=== PATIENT | female | born 1930 | race Caucasian/White ===

== ENCOUNTER 2017-02-24 17:02 | Emergency (ER) | payer MEDICARE ==
[2017-02-24 17:24] VITALS: BP 161/82; PULSE 101; RESP 16; TEMP 97.8; O2SAT 100
[2017-02-24] MEDS ORDERED: Alum-Mag Hydrox-Simethicone Susp (30 mL) PO ONE (18:28)
--- NOTE | 2017-02-24 18:31 | ED PDOC ---
HPI: Abdomen Time Seen by Provider: 02/24/17 17:36 Chief Complaint (Nursing): Abdominal Pain Chief Complaint (Provider): Abdominal Pain History Per: Patient History/Exam Limitations: no limitations Onset/Duration Of Symptoms: Hrs Current Symptoms Are (Timing): Still Present Additional Complaint(s): 86 y/o female with a past medical history of hypertension and gastroesophageal reflux disease (GERD) who presents to the emergency department with a complaint of a non-radiating abdominal pain that developed about an hour prior to arrival after she ate rice and beans. States pain is towards the right upper and middle region. Reports drinking club soda to relieve symptoms. Denies vomiting, diarrhea, nausea, and fever. PMD: Dr. Eligio Robles MD Past Medical History Reviewed: Historical Data, Nursing Documentation, Vital Signs Vital Signs: Last Vital Signs Temp 97.8 F 02/24/17 17:20 Pulse 101 H 02/24/17 17:20 Resp 16 02/24/17 17:20 BP 161/82 H 02/24/17 17:20 Pulse Ox 100 02/25/17 03:11 - Medical History PMH: GERD, HTN Other PMH: Cholecystectomy - Surgical History Surgical History: Appendectomy, Cholecystectomy - Family History Family History: States: Unknown Family Hx - Social History Current smoker - smoking cessation education provided: No Alcohol: None Drugs: Denies - Home Medications Home Medications: Ambulatory Orders Medication Instructions Recorded Nitrofurantoin Macrocrystals 100 mg PO BID 5 Days cap 02/24/17 [Macrobid] - Allergies Allergies/Adverse Reactions: Allergies Allergy/AdvReac Type Severity Reaction Status Date / Time No Known Allergies Allergy Verified 02/24/17 17:24 Review of Systems ROS Statement: Except As Marked, All Systems Reviewed And Found Negative Constitutional: Negative for: Fever Gastrointestinal: Positive for: Abdominal Pain. Negative for: Nausea, Vomiting , Diarrhea Physical Exam - Reviewed Nursing Documentation Reviewed: Yes Vital Signs Reviewed: Yes - Physical Exam Appears: Positive for: Non-toxic, No Acute Distress Head Exam: Positive for: ATRAUMATIC, NORMAL INSPECTION, NORMOCEPHALIC Skin: Positive for: Normal Color, Warm, Dry ENT: Positive for: Normal ENT Inspection Cardiovascular/Chest: Positive for: Regular Rate, Rhythm. Negative for: Murmur Respiratory: Positive for: Normal Breath Sounds. Negative for: Accessory Muscle Use, Respiratory Distress Gastrointestinal/Abdominal: Positive for: Soft, Tenderness (Epigastric region). Negative for: Normal Exam Extremity: Positive for: Normal ROM. Negative for: Pedal Edema Neurologic/Psych: Positive for: Alert, Oriented (x3) - Laboratory Results Result Diagrams: 02/24/17 18:33 02/24/17 18:33 - ECG O2 Sat by Pulse Oximetry: 100 (RA) Pulse Ox Interpretation: Normal Medical Decision Making Medical Decision Making: Time: 1819 Initial Impression: Abdominal pain differential includes gastritis, gastroesophageal reflux disease (GERD), acute coronary syndrome (ACS), and pancreatitis Initial Plan: --EKG --CMP --Lipase --Troponin I --Urine DIP --CBC w/ diff --Maalox Plus 30 ml PO --Pepcid 20 mg IVP --Abd & Pelvis CT --Iohexol 50 ml PO --Reevaluation Time: 19:25 --EKG: Normal Sinus rhythm LVH. Normal QRS rate [address] changes. Scribe Attestation: Documented by Heidy Hancock, acting as a scribe for Kamryn Nolan MD. Provider Scribe Attestation: All medical record entries made by the Scribe were at my direction and personally dictated by me. I have reviewed the chart and agree that the record accurately reflects my personal performance of the history, physical exam, medical decision making, and the department course for this patient. I have also personally directed, reviewed, and agree with the discharge instructions and disposition. Disposition - Clinical Impression Clinical Impression: UTI (urinary tract infection), Enteritis - Patient ED Disposition Is Patient to be Admitted: Transfer of Care Counseled Patient/Family Regarding: Studies Performed, Diagnosis - Disposition Referrals: Eligio Robles MD [Family Provider] - Disposition: Transfer of Care Disposition Time: 19:00 Condition: STABLE Prescriptions: Nitrofurantoin Macrocrystals [Macrobid] 100 mg PO BID 5 Days cap Instructions: Urinary Tract Infection in Women (DC), Enteritis (ED) Forms: [facility] (Bengali)
[2017-02-24] MEDS ORDERED: Alum-Mag Hydrox-Simethicone Susp (30 mL) ONE (18:38)
[2017-02-24] MEDS ORDERED: Iohexol 240 (50 ml) PO ONE (18:38)
[2017-02-24 18:44] LABS: BASO % 0.6 % (0.0-2.0); EOS # 0.2 K/uL (0.0-0.7); EOS % 3.6 % (0.0-4.0); HEMATOCRIT 41.7 % (34.0-47.0); LYMPH # 1.6 K/uL (1.0-4.3); LYMPH % 27.7 % (20.0-40.0); MEAN CELL VOLUME 90.5 fl (81.0-99.0); MEAN CORPUSCULAR HEMOGLOBIN 29.5 pg (27.0-31.0); MEAN CORPUSCULAR HGB CONC 32.6 g/dL (33.0-37.0); MEAN PLATELET VOLUME 8.5 fl (7.2-11.7); MONO # 0.4 K/uL (0.0-0.8); MONO % 6.8 % (0.0-10.0); NEUT # 3.6 K/uL (1.8-7.0); NEUT % 61.3 % (50.0-75.0); NRBC % 0.1 % (0.0-0.0); RED CELL DISTRIBUTION WIDTH 14.7 % (11.5-14.5); WHITE BLOOD COUNT 5.8 K/uL (4.8-10.8)
[2017-02-24] MEDS ORDERED: Iohexol 240 (50 ml) ONE (18:45)
[2017-02-24 18:51] LABS: ALB/GLOB RATIO 1.3 (1.0-2.1); ALKALINE PHOSPHATASE 60 U/L (38-126); ALT/SGPT 36 U/L (9-52); AST/SGOT 34 U/L (14-36); BILIRUBIN,TOTAL 0.4 mg/dl (0.2-1.3); BLOOD UREA NITROGEN 25 mg/dl (7-17); CALCIUM 9.3 mg/dL (8.4-10.2); CARBON DIOXIDE 23 mmol/L (22-30); CHLORIDE 102 mmol/L (98-107); GFR AFRICAN-AMERICAN > 60; GLUCOSE,RANDOM 140 mg/dL (65-105); LIPASE 129 U/L (23-300); POTASSIUM 4.1 MMOL/L (3.6-5.0); SODIUM 139 mmol/l (132-148); TOTAL PROTEIN 8.1 G/DL (6.3-8.2)
--- NOTE | 2017-02-24 19:34 | ED PDOC ---
- Laboratory Results Result Diagrams: 02/24/17 18:33 02/24/17 18:33 - ECG O2 Sat by Pulse Oximetry: 100 (RA) Pulse Ox Interpretation: Normal Medical Decision Making Medical Decision Making: Time: 1899 --Patient was endorsed from Dr. Nolan to me. --Pending CT Scan Time: 20:52 --CT - ABDOMEN,PELVIS W/WO CONTRAST FINDINGS: Lower thorax: Borderline cardiomegaly. Minimal atelectasis/scarring. Small hiatal hernia. ABDOMEN: Liver: Too small to characterize lesion. Gallbladder and bile ducts: Cholecystectomy. No ductal dilation. Pancreas: No ductal dilation. No mass. Spleen: No splenomegaly. Adrenals: No mass. Kidneys and ureters: Too small to characterize lesion within LEFT kidney. Minimal pelvocaliectasis of kidneys, RIGHT greater than LEFT. Apparent minimal enhancement of urothelium of renal pelvis and ureter, RIGHT greater than LEFT. Stomach and bowel: Apparent mild mural/fold thickening of few jejunal loops. No associated inflammatory stranding. Scattered diverticula within colon. No associated inflammatory stranding. No obstruction. Appendix: No findings to suggest acute appendicitis. PELVIS: Bladder: Borderline bladder wall thickening, up to 5 mm. Incomplete distention, limiting evaluation. Reproductive: Unremarkable as visualized. ABDOMEN and PELVIS: Intraperitoneal space: No significant fluid collection. No free air. Bones/joints: Degenerative changes of spine. No acute fracture. Soft tissues: Unremarkable. Vasculature: Moderate atherosclerotic disease. No aneurysm. Lymph nodes: No pathologically enlarged lymph nodes. IMPRESSION: 1. Possible mild enteritis. Clinical correlation is needed. 2. Possible cystitis/ureteritis. Correlate with urinalysis. 3. Incidental/non-acute findings are described above. Time: 22:10 --Cipro 500 mg PO --Urine Culture --Urinalysis Time:2214 Upon provider reevaluation patient is feeling better, is medically stable, and requires no further treatment in the ED at this time. Patient will be discharged home with Rx for Cipro 500 mg PO. Counseling was provided and all questions were answered regarding diagnosis and need for follow up with Dr. Eligio Robles MD. There is agreement to discharge plan. Return if symptoms persist or worsen. Clinical Impression: Enteritis and urinary tract infection (UTI) Scribe Attestation: Documented by Heidy Hancock, acting as a scribe for Rah Haddad MD. Provider Scribe Attestation: All medical record entries made by the Scribe were at my direction and personally dictated by me. I have reviewed the chart and agree that the record accurately reflects my personal performance of the history, physical exam, medical decision making, and the department course for this patient. I have also personally directed, reviewed, and agree with the discharge instructions and disposition. Disposition Counseled Patient/Family Regarding: Studies Performed, Diagnosis, Need For Followup - Clinical Impression Clinical Impression: UTI (urinary tract infection), Enteritis - POA Present On Arrival: None - Disposition Referrals: Eligio Robles MD [Family Provider] - Disposition: Routine/Home Disposition Time: 22:15 Condition: STABLE Prescriptions: Nitrofurantoin Macrocrystals [Macrobid] 100 mg PO BID 5 Days cap Instructions: Urinary Tract Infection in Women (DC), Enteritis (ED) Forms: [facility] (German)
[2017-02-24] MEDS ORDERED: Sodium Chloride 0.9% 50 ML IV ONE (20:31)
[2017-02-24] MEDS ORDERED: Iohexol 300 100 ML IJ ONE (20:31)
--- NOTE | 2017-02-24 21:52 | CT ---
EXAM: CT Abdomen and Pelvis With Intravenous Contrast CLINICAL HISTORY: 86 years old, female; Pain; Abdominal pain; Epigastric; Prior surgery; Surgery date: 6+ months; Surgery type: Gb removed. Append. Removed TECHNIQUE: Axial computed tomography images of the abdomen and pelvis with intravenous contrast. All CT scans at this facility use one or more dose reduction techniques, viz.: automated exposure control; ma/kV adjustment per patient size (including targeted exams where dose is matched to indication; i.e. head); or iterative reconstruction technique. Coronal and sagittal reformatted images were created and reviewed. CONTRAST: 90 mL of administered intravenously. COMPARISON: CT - ABDOMEN,PELVIS W/WO CONTRAST 10/23/2015 9:32:21 AM FINDINGS: Lower thorax: Borderline cardiomegaly. Minimal atelectasis/scarring. Small hiatal hernia. ABDOMEN: Liver: Too small to characterize lesion. Gallbladder and bile ducts: Cholecystectomy. No ductal dilation. Pancreas: No ductal dilation. No mass. Spleen: No splenomegaly. Adrenals: No mass. Kidneys and ureters: Too small to characterize lesion within LEFT kidney. Minimal pelvocaliectasis of kidneys, RIGHT greater than LEFT. Apparent minimal enhancement of urothelium of renal pelvis and ureter, RIGHT greater than LEFT. Stomach and bowel: Apparent mild mural/fold thickening of few jejunal loops. No associated inflammatory stranding. Scattered diverticula within colon. No associated inflammatory stranding. No obstruction. Appendix: No findings to suggest acute appendicitis. PELVIS: Bladder: Borderline bladder wall thickening, up to 5 mm. Incomplete distention, limiting evaluation. Reproductive: Unremarkable as visualized. ABDOMEN and PELVIS: Intraperitoneal space: No significant fluid collection. No free air. Bones/joints: Degenerative changes of spine. No acute fracture. Soft tissues: Unremarkable. Vasculature: Moderate atherosclerotic disease. No aneurysm. Lymph nodes: No pathologically enlarged lymph nodes. IMPRESSION: 1. Possible mild enteritis. Clinical correlation is needed. 2. Possible cystitis/ureteritis. Correlate with urinalysis. 3. Incidental/non-acute findings are described above.
[2017-02-24 22:29] LABS: RBC URINE 7 /hpf (0-3); URINE BACTERIA OCC (<OCC); URINE BILIRUBIN NEGATIVE (NEGATIVE); URINE BLOOD SMALL (NEGATIVE); URINE COLOR YELLOW (YELLOW); URINE GLUCOSE (UA) NEG (Normal); URINE KETONE NEGATIVE (NEGATIVE); URINE LEUKOCYTE ESTERASE SMALL Leu/uL (Negative); URINE PROTEIN NEGATIVE (NEGATIVE); URINE UROBILINOGEN 0.2-1.0 mg/dL (0.2-1.0); WBC URINE 8 /hpf (0-5)
--- NOTE | 2017-02-25 10:34 | CARD ---
APPROVED REPORT EKG Measurement Heart [id number] <Conclusion> Normal sinus rhythm Left ventricular hypertrophy with repolarization abnormality Inferior infarct, age undetermined Abnormal ECG
== END 2017-02-24 22:31 | disposition home or self-care (01) ==
LOC: H.ER 17:02
DX: N39.0 Urinary tract infection, site not specified (principal); K52.9 Noninfective gastroenteritis and colitis, unspecified; I10 Essential (primary) hypertension
CPT/HCPCS: 74177; 80053; 81003; 83690; 84484; 85025; 87086; 87181; 93005; 96374; 99282; Q9966; Q9967

== ENCOUNTER 2017-09-16 15:50 | Observation (INO) | payer MEDICARE ==
[2017-09-16] MEDS ORDERED: Iohexol 240 (50 ml) PO ONE (16:59)
[2017-09-16] MEDS ORDERED: Iohexol 240 (50 ml) ONE (17:10)
[2017-09-16 17:14] LABS: BASO # 0.1 K/uL (0.0-0.2); BASO % 0.7 % (0.0-2.0); EOS # 0.1 K/uL (0.0-0.7); EOS % 1.1 % (0.0-4.0); HEMOGLOBIN 12.9 g/dL (12.0-16.0); LYMPH # 1.4 K/uL (1.0-4.3); LYMPH % 19.6 % (20.0-40.0); MEAN CELL VOLUME 90.1 fl (81.0-99.0); MEAN CORPUSCULAR HEMOGLOBIN 29.9 pg (27.0-31.0); MEAN CORPUSCULAR HGB CONC 33.2 g/dL (33.0-37.0); MEAN PLATELET VOLUME 8.3 fl (7.2-11.7); MONO # 0.6 K/uL (0.0-0.8); MONO % 8.3 % (0.0-10.0); NEUT # 5.1 K/uL (1.8-7.0); NEUT % 70.3 % (50.0-75.0); RBC 4.33 Mil/uL (3.80-5.20); RED CELL DISTRIBUTION WIDTH 14.7 % (11.5-14.5); WHITE BLOOD COUNT 7.2 K/uL (4.8-10.8)
[2017-09-16 17:27] LABS: ALB/GLOB RATIO 1.1 (1.0-2.1); ALBUMIN 4.1 g/dL (3.5-5.0); ALT/SGPT 42 U/L (9-52); AST/SGOT 30 U/L (14-36); BLOOD UREA NITROGEN 18 mg/dl (7-17); CALCIUM 9.1 mg/dL (8.4-10.2); GFR AFRICAN-AMERICAN > 60; GFR NON-AFRICAN AMERICAN > 60
[2017-09-16 17:39] LABS: URINE BILIRUBIN NEGATIVE (NEGATIVE); URINE BLOOD NEGATIVE (NEGATIVE); URINE CLARITY CLEAR (Clear); URINE COLOR COLORLESS (YELLOW); URINE GLUCOSE (UA) NEG (Normal); URINE LEUKOCYTE ESTERASE NEG Leu/uL (Negative); URINE PROTEIN NEGATIVE (NEGATIVE); URINE UROBILINOGEN 0.2-1.0 mg/dL (0.2-1.0)
--- NOTE | 2017-09-16 17:42 | ED PDOC ---
HPI: Abdomen Time Seen by Provider: 09/16/17 16:00 Chief Complaint (Nursing): Abdominal Pain Chief Complaint (Provider): abdominal pain History Per: Patient History/Exam Limitations: no limitations Onset/Duration Of Symptoms: Days (x4-5) Current Symptoms Are (Timing): Still Present Quality Of Discomfort: "Pain" Associated Symptoms: denies: Fever, Nausea, Vomiting, Diarrhea Additional Complaint(s): 87 year old female, with past medical history of HTN, presents to ED with complaints of abdominal pain onset for 4-5 days. Patient was referred to the ED by PCP. She reports to have eaten seafood with chili and thinks it might have triggered it. She denies nausea, vomiting, diarrhea or fever. No further medical complaints. PCP: Eligio Walker Past Medical History Reviewed: Historical Data, Nursing Documentation, Vital Signs Vital Signs: Last Vital Signs Temp 98.1 F 09/17/17 08:22 Pulse 68 09/17/17 09:00 Resp 20 09/17/17 08:22 BP 152/67 H 09/17/17 09:00 Pulse Ox 97 09/17/17 08:22 - Medical History PMH: GERD, HTN, Hypercholesterolemia - Surgical History Surgical History: Appendectomy, Cholecystectomy - Family History Family History: States: Unknown Family Hx - Social History Current smoker - smoking cessation education provided: No Alcohol: None Drugs: Denies - Home Medications Home Medications: Ambulatory Orders Medication Instructions Recorded Aspirin [Ecotrin] 81 mg PO DAILY 09/16/17 Carvedilol [Coreg] 6.25 mg PO DAILY 09/16/17 Famotidine [Pepcid] 40 mg PO DAILY 09/16/17 Gabapentin [Neurontin] 300 mg PO HS 09/16/17 Levothyroxine [Synthroid] 75 mcg PO DAILY 09/16/17 Sucralfate [Carafate] 1 gm PO DAILY 09/16/17 amLODIPine [Norvasc] 5 mg PO DAILY 09/16/17 - Allergies Allergies/Adverse Reactions: Allergies Allergy/AdvReac Type Severity Reaction Status Date / Time No Known Allergies Allergy Verified 09/16/17 15:55 Review of Systems ROS Statement: Except As Marked, All Systems Reviewed And Found Negative Constitutional: Negative for: Fever Gastrointestinal: Positive for: Abdominal Pain. Negative for: Nausea, Vomiting , Diarrhea Physical Exam - Reviewed Nursing Documentation Reviewed: Yes Vital Signs Reviewed: Yes - Physical Exam Appears: Positive for: Non-toxic, No Acute Distress Head Exam: Positive for: ATRAUMATIC, NORMAL INSPECTION, NORMOCEPHALIC Skin: Positive for: Normal Color, Warm, Dry Eye Exam: Positive for: Normal appearance ENT: Positive for: Normal ENT Inspection Neck: Positive for: Normal, Painless ROM Cardiovascular/Chest: Positive for: Regular Rate, Rhythm. Negative for: Murmur Respiratory: Positive for: Normal Breath Sounds. Negative for: Respiratory Distress Gastrointestinal/Abdominal: Positive for: Normal Exam, Soft. Negative for: Tenderness Back: Positive for: Normal Inspection. Negative for: L CVA Tenderness, R CVA Tenderness, Vertebral Tenderness Extremity: Positive for: Normal ROM (lower/upper). Negative for: Deformity, Swelling Neurologic/Psych: Positive for: Alert, Oriented. Negative for: Motor/Sensory Deficits - Laboratory Results Result Diagrams: 09/17/17 07:20 09/17/17 07:20 - ECG O2 Sat by Pulse Oximetry: 98 (RA) Pulse Ox Interpretation: Normal Medical Decision Making Medical Decision Making: Initial Impression: Abdominal pain rule out diverticulitis, colitis Initial Plan: --CT Abd Pelvis & IV contrast --CMP --ED Urine dipstick --CBC --Urinalysis --Omnipaque 50mL PO 20:11 CT Abd/Pelvis FINDINGS: LIMITATIONS: Moderate streak/motion artifact. LUNG BASES: No significant abnormality seen. MEDIASTINUM: Small hiatal hernia. ABDOMEN: LIVER: Fatty infiltration of the liver. GALLBLADDER AND BILE DUCTS: Cholecystectomy clips. PANCREAS: No CT evidence of acute pancreatitis. SPLEEN: No acute abnormality of the spleen identified. ADRENALS: No acute abnormality of the adrenal glands identified. KIDNEYS AND URETERS: Incidental fluid density probable cystic left renal lesion, measuring less than 1 cm. Consistent with the [employer]?s Incidental Findings Committee Report, unless the patient?s specific circumstances suggest otherwise, any cystic kidney lesion less than 1 cm not otherwise characterized in this report as possessing suspicious or indeterminate imaging features is/are highly likely to be benign and do not require follow-up imaging or biopsy. STOMACH AND BOWEL: Mild fat stranding and infiltration, consistent with inflammatory change, is seen in the fat adjacent to the distal sigmoid colon. Mild segmental wall thickening of the colon is also noted in this same area. There is a tiny amount of nearby pelvic free fluid. The inflammatory changes surround a colonic diverticulum, image 126 series 3. Findings are most compatible with acute diverticulitis. No evidence of significant focal fluid collection or abscess. No definite nearby extraluminal air seen to suggest perforation. Extensive colonic diverticulosis. Duodenal diverticulum. Otherwise, no significant abnormality of the bowel is identified. No evidence of bowel obstruction. PELVIS: APPENDIX: Normal appendix is not seen, and there is a reported history of previous appendectomy. BLADDER: No acute abnormality of the bladder identified. REPRODUCTIVE:No acute abnormality of the reproductive organs is seen. No acute abnormality of the uterus identified. No evidence of large adnexal masses. ABDOMEN and PELVIS: INTRAPERITONEAL SPACE: See above. No evidence of free fluid or free air. BONES/JOINTS: No acute fractures or other acute bony abnormality noted. SOFT TISSUES: No acute abnormality of the visualized soft tissues is seen. VASCULATURE: No evidence of abdominal aortic aneurysm. No evidence of periaortic hemorrhage. LYMPH NODES: No evidence of diffuse lymphadenopathy. IMPRESSION: - Findings compatible with acute diverticulitis of the colon. No evidence of abscess formation or perforation. - See above for remaining findings. 21:[address] Robles regarding patient's diagnosis of acute diverticulitis. iv abx ordered. pt aware and agreeable to plan. Per Dr Robles, he will call consults tomorrow. Scribe Attestation: Documented by Nathan Hall acting as a scribe for Ernesto Pichardo MD. Provider Scribe Attestation: All medical record entries made by the Scribe were at my direction and personally dictated by me. I have reviewed the chart and agree that the record accurately reflects my personal performance of the history, physical exam, medical decision making, and the department course for this patient. I have also personally directed, reviewed, and agree with the discharge instructions and disposition. Disposition - Clinical Impression Clinical Impression: Abdominal discomfort, Diverticulitis - Patient ED Disposition Is Patient to be Admitted: Yes - Disposition Disposition Time: 18:00 Condition: STABLE
[2017-09-16] MEDS ORDERED: Sodium Chloride 0.9% 100 ML ONE (19:07)
[2017-09-16] MEDS ORDERED: Iohexol 300 100 ML IJ ONE (19:07)
[2017-09-16] MEDS ORDERED: Labetalol 5 mg/ml Inj 20ML IVP STA (19:50)
--- NOTE | 2017-09-16 20:12 | CT ---
EXAM: CT Abdomen and Pelvis With Intravenous Contrast EXAM DATE/TIME: 09/16/2017 4:59 PM CLINICAL HISTORY: 87 years old, female; Pain; Abdominal pain; Generalized; Prior surgery; Surgery date: 6+ months; Surgery type: Appendectomy, cholecystectomy; Patient HX: Gerd TECHNIQUE: Axial computed tomography images of the abdomen and pelvis with intravenous contrast. All CT scans at this facility use one or more dose reduction techniques, viz.: automated exposure control; ma/kV adjustment per patient size (including targeted exams where dose is matched to indication; i.e. head); or iterative reconstruction technique. Coronal and sagittal reformatted images were created and reviewed. CONTRAST: 90 mL of [id number] administered intravenously. COMPARISON: Prior CT abdomen and pelvis of 2017-02-24 FINDINGS: LIMITATIONS: Moderate streak/motion artifact. LUNG BASES: No significant abnormality seen. MEDIASTINUM: Small hiatal hernia. ABDOMEN: LIVER: Fatty infiltration of the liver. GALLBLADDER AND BILE DUCTS: Cholecystectomy clips. PANCREAS: No CT evidence of acute pancreatitis. SPLEEN: No acute abnormality of the spleen identified. ADRENALS: No acute abnormality of the adrenal glands identified. KIDNEYS AND URETERS: Incidental fluid density probable cystic left renal lesion, measuring less than 1 cm. Consistent with the [employer]?s Incidental Findings Committee Report, unless the patient?s specific circumstances suggest otherwise, any cystic kidney lesion less than 1 cm not otherwise characterized in this report as possessing suspicious or indeterminate imaging features is/are highly likely to be benign and do not require follow-up imaging or biopsy. STOMACH AND BOWEL: Mild fat stranding and infiltration, consistent with inflammatory change, is seen in the fat adjacent to the distal sigmoid colon. Mild segmental wall thickening of the colon is also noted in this same area. There is a tiny amount of nearby pelvic free fluid. The inflammatory changes surround a colonic diverticulum, image 126 series 3. Findings are most compatible with acute diverticulitis. No evidence of significant focal fluid collection or abscess. No definite nearby extraluminal air seen to suggest perforation. Extensive colonic diverticulosis. Duodenal diverticulum. Otherwise, no significant abnormality of the bowel is identified. No evidence of bowel obstruction. PELVIS: APPENDIX: Normal appendix is not seen, and there is a reported history of previous appendectomy. BLADDER: No acute abnormality of the bladder identified. REPRODUCTIVE:No acute abnormality of the reproductive organs is seen. No acute abnormality of the uterus identified. No evidence of large adnexal masses. ABDOMEN and PELVIS: INTRAPERITONEAL SPACE: See above. No evidence of free fluid or free air. BONES/JOINTS: No acute fractures or other acute bony abnormality noted. SOFT TISSUES: No acute abnormality of the visualized soft tissues is seen. VASCULATURE: No evidence of abdominal aortic aneurysm. No evidence of periaortic hemorrhage. LYMPH NODES: No evidence of diffuse lymphadenopathy. IMPRESSION: - Findings compatible with acute diverticulitis of the colon. No evidence of abscess formation or perforation. - See above for remaining findings.
[2017-09-16] MEDS ORDERED: Ciprofloxacin 400mg/200ml D5W 400 MG/200 ML BAG IVPB STA (20:16)
[2017-09-16] MEDS ORDERED: metroNIDAZOLE 500mg/100ml NS 100 ML IVPB STA (20:17)
[2017-09-16] MEDS ORDERED: Ciprofloxacin 400mg/200ml D5W 400 MG/200 ML BAG IVPB ONE (21:28)
[2017-09-17] MEDS: Dextrose 5%/0.9% NS 1,000 ML IV SCH ×2 (02:55→16:23)
[2017-09-17 07:42] LABS: HEMOGLOBIN 12.4 g/dL (12.0-16.0); MEAN CELL VOLUME 90.2 fl (81.0-99.0); MEAN CORPUSCULAR HEMOGLOBIN 30.1 pg (27.0-31.0); MEAN CORPUSCULAR HGB CONC 33.3 g/dL (33.0-37.0); RBC 4.13 Mil/uL (3.80-5.20); RED CELL DISTRIBUTION WIDTH 14.5 % (11.5-14.5); WHITE BLOOD COUNT 5.1 K/uL (4.8-10.8)
[2017-09-17 08:13] LABS: AMYLASE 79 U/L (30-110); BLOOD UREA NITROGEN 14 mg/dl (7-17); GFR AFRICAN-AMERICAN > 60; GFR NON-AFRICAN AMERICAN > 60; LIPASE 46 U/L (23-300)
[2017-09-17] MEDS: Enoxaparin 40 mg Syringe SC SCH (09:00)
[2017-09-17] MEDS: Levothyroxine 75 MCG TAB PO SCH (09:00)
[2017-09-17] MEDS: metroNIDAZOLE 500mg/100ml NS 100 ML IVPB SCH ×3 (09:01→23:59)
[2017-09-17] MEDS: Ciprofloxacin 400mg/200ml D5W 400 MG/200 ML BAG IVPB SCH ×2 (09:02→21:09)
--- NOTE | 2017-09-17 11:13 | CP.PCM.HP ---
History of Present Illness - History of Present Illness History of Present Illness: Patient is a pleasant 88 y/o lady presented in ER with hx of progressive worsening abdominal pain for about 2 days, the location of the pain is most in the lower quadrants, the characteristic is crampy and colicky, intermittent no irradiation of the pain, she c/o nausea with positive flatus, no urinary symptoms, no change of the pain with position, no melena, no hematochesia. Patient had several episode in the past with dx of diverticulitis. Since admission she improving on present rx. Will advance the diet. Patient was placed under observation. Present on Admission - Present on Admission Any Indicators Present on Admission: No Review of Systems - Constitutional Constitutional: As Per HPI - EENT Eyes: As Per HPI - Cardiovascular Cardiovascular: As Per HPI - Respiratory Respiratory: As Per HPI - Gastrointestinal Gastrointestinal: Abdominal Pain, Cramping - Genitourinary Genitourinary: As Per HPI - Musculoskeletal Musculoskeletal: As Per HPI - Integumentary Integumentary: As Per HPI - Neurological Neurological: As Per HPI - Psychiatric Psychiatric: As Per HPI Past Patient History - Past Medical History & Family History Past Medical History?: Yes - Past Social History Smoking Status: Never Smoked - CARDIAC Hx Cardiac Disorders: Yes Hx Hypercholesterolemia: Yes Hx Hypertension: Yes - PULMONARY Hx Respiratory Disorders: No - NEUROLOGICAL Hx Neurological Disorder: No - HEENT Hx HEENT Problems: No - RENAL Hx Chronic Kidney Disease: No - ENDOCRINE/METABOLIC Hx Endocrine Disorders: No - HEMATOLOGICAL/ONCOLOGICAL Hx Blood Disorders: No - INTEGUMENTARY Hx Dermatological Problems: No - MUSCULOSKELETAL/RHEUMATOLOGICAL Hx Musculoskeletal Disorders: No Hx Falls: Yes - GASTROINTESTINAL Hx Gastrointestinal Disorders: No - GENITOURINARY/GYNECOLOGICAL Hx Genitourinary Disorders: No - PSYCHIATRIC Hx Psychophysiologic Disorder: No Hx Substance Use: No - SURGICAL HISTORY Hx Surgeries: Yes Hx Appendectomy: Yes Hx Cholecystectomy: Yes - ANESTHESIA Hx Anesthesia: Yes Hx Anesthesia Reactions: No Meds Allergies/Adverse Reactions: Allergies Allergy/AdvReac Type Severity Reaction Status Date / Time No Known Allergies Allergy Verified 09/16/17 15:55 Physical Exam - Constitutional Appears: Non-toxic - Head Exam Head Exam: ATRAUMATIC, NORMAL INSPECTION, NORMOCEPHALIC - ENT Exam ENT Exam: Mucous Membranes Dry - Neck Exam Neck exam: Positive for: Normal Inspection - Respiratory Exam Respiratory Exam: Clear to Auscultation Bilateral - Cardiovascular Exam Cardiovascular Exam: REGULAR RHYTHM, +S1, +S2 - GI/Abdominal Exam GI & Abdominal Exam: Tenderness - Extremities Exam Extremities exam: Positive for: normal inspection - Neurological Exam Neurological exam: Alert, CN II-XII Intact, Oriented x3 Results - Vital Signs Recent Vital Signs: Last Vital Signs Temp 98.1 F 09/17/17 08:22 Pulse 68 09/17/17 09:00 Resp 20 09/17/17 08:22 BP 152/67 H 09/17/17 09:00 Pulse Ox 97 09/17/17 08:22 - Labs Result Diagrams: 09/17/17 07:20 09/17/17 07:20 Labs: Laboratory Results - last 24 hr 09/16/17 09/16/17 09/16/17 17:08 17:08 17:15 WBC 7.2 RBC 4.33 Hgb 12.9 Hct 39.0 MCV 90.1 MCH 29.9 MCHC 33.2 RDW 14.7 H Plt Count 177 MPV 8.3 Neut % (Auto) 70.3 Lymph % (Auto) 19.6 L [place] % (Auto) 8.3 Eos % (Auto) 1.1 Baso % (Auto) 0.7 Neut # (Auto) 5.1 Lymph # (Auto) 1.4 [place] # (Auto) 0.6 Eos # (Auto) 0.1 Baso # (Auto) 0.1 Sodium 139 Potassium 4.2 Chloride 103 Carbon Dioxide 22 Anion Gap 18 BUN 18 H Creatinine 0.8 Est GFR ( Amer) > 60 Est GFR (Non-Af Amer) > 60 Random Glucose 87 Calcium 9.1 Total Bilirubin 0.5 AST 30 ALT 42 Alkaline Phosphatase 70 Total Protein 7.6 Albumin 4.1 Globulin 3.5 Albumin/Globulin Ratio 1.1 Amylase Lipase TSH 3rd Generation Urine Color Colorless Urine Clarity Clear Urine pH 7.0 Ur Specific [place] 1.005 Urine Protein Negative Urine Glucose (UA) Neg Urine Ketones Negative Urine Blood Negative Urine Nitrate Negative Urine Bilirubin Negative Urine Urobilinogen 0.2-1.0 Ur Leukocyte Esterase Neg Urine RBC (Auto) 1 Urine Microscopic WBC 1 09/17/17 09/17/17 07:20 07:20 WBC 5.1 RBC 4.13 Hgb 12.4 Hct 37.3 MCV 90.2 MCH 30.1 MCHC 33.3 RDW 14.5 Plt Count 160 MPV Neut % (Auto) Lymph % (Auto) [place] % (Auto) Eos % (Auto) Baso % (Auto) Neut # (Auto) Lymph # (Auto) [place] # (Auto) Eos # (Auto) Baso # (Auto) Sodium 139 Potassium 3.9 Chloride 103 Carbon Dioxide 26 Anion Gap 14 BUN 14 Creatinine 0.8 Est GFR ( Amer) > 60 Est GFR (Non-Af Amer) > 60 Random Glucose 113 H Calcium 9.0 Total Bilirubin AST ALT Alkaline Phosphatase Total Protein Albumin Globulin Albumin/Globulin Ratio Amylase 79 Lipase 46 TSH 3rd Generation 3.24 Urine Color Urine Clarity Urine pH Ur Specific [place] Urine Protein Urine Glucose (UA) Urine Ketones Urine Blood Urine Nitrate Urine Bilirubin Urine Urobilinogen Ur Leukocyte Esterase Urine RBC (Auto) Urine Microscopic WBC Assessment & Plan (1) Diverticulitis Status: Acute (2) Diverticulitis large intestine Status: Acute (3) Abdominal pain Status: Acute (4) Diverticulosis Status: Chronic
[2017-09-17] MEDS: Lactobacillus Acidophilus 500 MU Cap PO SCH (16:22)
[2017-09-18] MEDS: Levothyroxine 75 MCG TAB PO SCH (06:05)
[2017-09-18 07:17] LABS: HEMOGLOBIN 12.3 g/dL (12.0-16.0); MEAN CELL VOLUME 90.5 fl (81.0-99.0); MEAN CORPUSCULAR HEMOGLOBIN 29.6 pg (27.0-31.0); MEAN CORPUSCULAR HGB CONC 32.7 g/dL (33.0-37.0); RBC 4.17 Mil/uL (3.80-5.20); RED CELL DISTRIBUTION WIDTH 14.5 % (11.5-14.5); WHITE BLOOD COUNT 3.6 K/uL (4.8-10.8)
[2017-09-18 07:41] LABS: BLOOD UREA NITROGEN 14 mg/dl (7-17); GFR AFRICAN-AMERICAN > 60; GFR NON-AFRICAN AMERICAN > 60
[2017-09-18] MEDS: Lactobacillus Acidophilus 500 MU Cap PO SCH ×2 (09:00→16:25)
[2017-09-18] MEDS: Ciprofloxacin 400mg/200ml D5W 400 MG/200 ML BAG IVPB SCH (09:03)
[2017-09-18] MEDS: metroNIDAZOLE 500mg/100ml NS 100 ML IVPB SCH ×2 (09:03→16:25)
[2017-09-18] MEDS: Enoxaparin 40 mg Syringe SC SCH (09:05)
[2017-09-18 15:52] VITALS: BP 124/75; PULSE 65; RESP 19; TEMP 98; O2SAT 98
--- NOTE | 2017-09-18 18:00 | CP.PCM.DIS ---
Provider - Provider Date of Admission: 09/16/17 20:18 Attending physician: Eligio Robles MD Time Spent in preparation of Discharge (in minutes): 30 Diagnosis - Discharge Diagnosis (1) Diverticulitis Status: Acute (2) Diverticulitis large intestine Status: Acute (3) Abdominal pain Status: Acute (4) Diverticulosis Status: Chronic Hospital Course - Lab Results Lab Results: Micro Results 09/16/17 20:45 Blood-Venous Blood Culture - Preliminary NO GROWTH AFTER 24 HOURS Most Recent Lab Values WBC 3.6 K/uL (4.8-10.8) L 09/18/17 07:10 RBC 4.17 Mil/uL (3.80-5.20) 09/18/17 07:10 Hgb 12.3 g/dL (12.0-16.0) 09/18/17 07:10 Hct 37.7 % (34.0-47.0) 09/18/17 07:10 MCV 90.5 fl (81.0-99.0) 09/18/17 07:10 MCH 29.6 pg (27.0-31.0) 09/18/17 07:10 MCHC 32.7 g/dL (33.0-37.0) L 09/18/17 07:10 RDW 14.5 % (11.5-14.5) 09/18/17 07:10 Plt Count 165 K/uL (130-400) 09/18/17 07:10 MPV 8.3 fl (7.2-11.7) 09/16/17 17:08 Neut % (Auto) 70.3 % (50.0-75.0) 09/16/17 17:08 Lymph % (Auto) 19.6 % (20.0-40.0) L 09/16/17 17:08 [place] % (Auto) 8.3 % (0.0-10.0) 09/16/17 17:08 Eos % (Auto) 1.1 % (0.0-4.0) 09/16/17 17:08 Baso % (Auto) 0.7 % (0.0-2.0) 09/16/17 17:08 Neut # (Auto) 5.1 K/uL (1.8-7.0) 09/16/17 17:08 Lymph # (Auto) 1.4 K/uL (1.0-4.3) 09/16/17 17:08 [place] # (Auto) 0.6 K/uL (0.0-0.8) 09/16/17 17:08 Eos # (Auto) 0.1 K/uL (0.0-0.7) 09/16/17 17:08 Baso # (Auto) 0.1 K/uL (0.0-0.2) 09/16/17 17:08 Sodium 139 mmol/l (132-148) 09/18/17 07:10 Potassium 4.0 MMOL/L (3.6-5.0) 09/18/17 07:10 Chloride 105 mmol/L (98-107) 09/18/17 07:10 Carbon Dioxide 23 mmol/L (22-30) 09/18/17 07:10 Anion Gap 15 (10-20) 09/18/17 07:10 BUN 14 mg/dl (7-17) 09/18/17 07:10 Creatinine 0.8 mg/dl (0.7-1.2) 09/18/17 07:10 Est GFR ( Amer) > 60 09/18/17 07:10 Est GFR (Non-Af Amer) > 60 09/18/17 07:10 Random Glucose 95 mg/dL (65-105) 09/18/17 07:10 Calcium 9.0 mg/dL (8.4-10.2) 09/18/17 07:10 Total Bilirubin 0.5 mg/dl (0.2-1.3) 09/16/17 17:08 AST 30 U/L (14-36) 09/16/17 17:08 ALT 42 U/L (9-52) 09/16/17 17:08 Alkaline Phosphatase 70 U/L (38-126) 09/16/17 17:08 Total Protein 7.6 G/DL (6.3-8.2) 09/16/17 17:08 Albumin 4.1 g/dL (3.5-5.0) 09/16/17 17:08 Globulin 3.5 gm/dL (2.2-3.9) 09/16/17 17:08 Albumin/Globulin Ratio 1.1 (1.0-2.1) 09/16/17 17:08 Amylase 79 U/L (30-110) 09/17/17 07:20 Lipase 46 U/L (23-300) 09/17/17 07:20 TSH 3rd Generation 3.24 mIU/ML (0.46-4.68) 09/17/17 07:20 Urine Color Colorless (YELLOW) 09/16/17 17:15 Urine Clarity Clear (Clear) 09/16/17 17:15 Urine pH 7.0 (5.0-8.0) 09/16/17 17:15 Ur Specific [place] 1.005 (1.003-1.030) 09/16/17 17:15 Urine Protein Negative mg/dL (NEGATIVE) 09/16/17 17:15 Urine Glucose (UA) Neg mg/dL (Normal) 09/16/17 17:15 Urine Ketones Negative mg/dL (NEGATIVE) 09/16/17 17:15 Urine Blood Negative (NEGATIVE) 09/16/17 17:15 Urine Nitrate Negative (NEGATIVE) 09/16/17 17:15 Urine Bilirubin Negative (NEGATIVE) 09/16/17 17:15 Urine Urobilinogen 0.2-1.0 mg/dL (0.2-1.0) 09/16/17 17:15 Ur Leukocyte Esterase Neg [place]/uL (Negative) 09/16/17 17:15 Urine RBC (Auto) 1 /hpf (0-3) 09/16/17 17:15 Urine Microscopic WBC 1 /hpf (0-5) 09/16/17 17:15 - Hospital Course Hospital Course: Patient well responded to medical rx, no c/o no abdominal pain no v/n no hematochesia, no melena no fever hemodynamically stable. Will follow as OP Discharge Exam - Head Exam Head Exam: ATRAUMATIC, NORMAL INSPECTION, NORMOCEPHALIC - Eye Exam Eye Exam: Normal appearance - ENT Exam ENT Exam: Normal Exam - Neck Exam Neck exam: Full Rom - Respiratory Exam Respiratory Exam: Clear to PA & Lateral - Cardiovascular Exam Cardiovascular Exam: REGULAR RHYTHM, +S1, +S2 - GI/Abdominal Exam GI & Abdominal Exam: Normal Bowel Sounds, Unremarkable - Extremities Exam Extremities exam: normal inspection - Neurological Exam Neurological exam: Alert, CN II-XII Intact, Normal Gait, Oriented x3, Reflexes Normal - Psychiatric Exam Psychiatric exam: Normal Affect - Skin Skin Exam: Normal Color Discharge Plan - Discharge Medications Prescriptions: Acidoph/L.bulg/Bif.b/S.thermop [Bacid Caplet] 1 each PO BID 30 Days #60 tablet Ciprofloxacin HCl [Cipro] 500 mg PO BID 7 Days #14 tablet Metronidazole [Flagyl] 500 mg PO TID 7 Days #21 tablet - Follow Up Plan Condition: STABLE Disposition: HOME/ ROUTINE Instructions: Diverticulitis (DC), Diverticulitis Referrals: Eligio Robles MD [Family Provider] -
== END 2017-09-18 20:07 | disposition home or self-care (01) ==
LOC: H.ER 15:50 → INTOOBSV 20:18 → H.ERHOLD 20:18 → H.MEDSURG1 22:20
PROVIDERS: ADMIT Internal Medicine; ATTEND Internal Medicine
DX: K57.32 Diverticulitis of large intestine without perforation or abscess without bleeding (principal); E78.00 Pure hypercholesterolemia, unspecified; I10 Essential (primary) hypertension; K21.9 Gastro-esophageal reflux disease without esophagitis
CPT/HCPCS: 36415; 74177; 80048; 80053; 81003; 82150; 83690; 84443; 85025; 85027; 87040; 96361; 96365; 96366; 96367; 96372; 96375; 96376; 99285; G0378; J0744; J1650; J7042; Q9966; Q9967